=== PATIENT | male | born 1990 | race Caucasian/White ===

== ENCOUNTER → 2017-01-15 | Outpatient (REF) | payer OTHER ==
[2017-01-15 11:06] LABS: #IMMOTILE SPERM COUNTED 14.5; #MOTILE SPERM COUNTED 4; % MOTILITY 21 (> 25%); TOTAL # SPERM COUNTED 18.5 M/ml
== END ==
LOC: M SMT 10:29
PROVIDERS: ATTEND Nurse Practitioner Women's Health
DX: N46.11 Organic oligospermia (principal)

== ENCOUNTER → 2017-02-07 | Outpatient (REF) | payer OTHER | LOC: M LABSMT 09:09 → M LABDRAWC 09:19 | PROVIDERS: ATTEND Nurse Practitioner Women's Health | DX: N46.11 Organic oligospermia (principal) ==

== ENCOUNTER → 2017-02-07 | Outpatient (CLI) | payer OTHER ==
--- NOTE | 2017-02-07 15:49 | REP ---
SCROTAL ULTRASOUND: Real-time sonographic evaluation of the scrotum and contents performed. Testicles are symmetrical in size, right testicle measuring 4.1 x 1.9 x 2.5 cm and left testicle 4.1 x 2.4 x 2.7 cm. There is no testicular mass or torsion. Blood flow is seen in each testicle with duplex Doppler evaluation, RI right testicle 0.43 and left testicle 0.45. Small cyst in the right epididymis measures 3 mm in diameter. Small left varicocele is noted 3 mm in maximum diameter. Small bilateral hydroceles are seen, left greater than right. IMPRESSION: No testicular mass or torsion. Small left varicocele. Normal size of testicles with no size asymmetry. Signed by Gavin Blank MD 02/07/2017 04:44 P
== END ==
LOC: M RAD 13:12
PROVIDERS: ATTEND Nurse Practitioner Women's Health
DX: I86.1 Scrotal varices (principal)

== ENCOUNTER → 2017-09-10 | Outpatient (REF) | payer OTHER ==
[2017-09-10 12:04] LABS: MEAN CORPUSCULAR HEMOGLOBIN 28.9 pg (27.0-33.0); MEAN CORPUSCULAR HGB CONC 34.2 g/dl (32.0-36.5); MEAN CORPUSCULAR VOLUME 84.4 fl (80.0-96.0); PLATELET COUNT, AUTOMATED 196 10^3/uL (150-450); RED CELL DISTRIBUTION WIDTH 12.3 % (11.5-14.5); WHITE BLOOD COUNT 5.5 10^3/uL (4.0-10.0)
[2017-09-10 12:30] LABS: ALBUMIN 4.4 GM/DL (3.2-5.2); ALBUMIN/GLOBULIN RATIO 1.63 (1.00-1.93); ALKALINE PHOSPHATASE 67 U/L (45-117); ALT/SGPT 24 U/L (12-78); ANION GAP 6 MEQ/L (8-16); AST/SGOT 12 U/L (7-37); BILIRUBIN,TOTAL 0.9 MG/DL (0.2-1.0); BLOOD UREA NITROGEN 19 MG/DL (7-18); CALCIUM LEVEL 9.1 MG/DL (8.5-10.1); CARBON DIOXIDE LEVEL 29 MEQ/L (21-32); CHLORIDE LEVEL 106 MEQ/L (98-107); CHOLESTEROL LEVEL 178 MG/DL (<200); GLOMERULAR FILTRATION RATE > 60.0 (>60); GLUCOSE, FASTING 86 MG/DL (70-105); SODIUM LEVEL 141 MEQ/L (136-145); TOTAL PROTEIN 7.1 GM/DL (6.4-8.2); TRIGLYCERIDES LEVEL 65 MG/DL (<150)
[2017-09-10 12:33] LABS: POTASSIUM SERUM 5.2 MEQ/L (3.5-5.1)
== END ==
LOC: M SFHCCLAY 09:15
PROVIDERS: ATTEND Nurse Practitioner Family
DX: K21.9 Gastro-esophageal reflux disease without esophagitis (principal); F90.9 Attention-deficit hyperactivity disorder, unspecified type; Z13.6 Encounter for screening for cardiovascular disorders

== ENCOUNTER → 2017-09-19 | Outpatient (REF) | payer OTHER | LOC: M SFHCCLAY 09:40 | PROVIDERS: ATTEND Nurse Practitioner Family | DX: E87.5 Hyperkalemia (principal) ==

== ENCOUNTER → 2017-09-19 | Outpatient (CLI) | payer OTHER ==
--- NOTE | 2017-09-19 10:51 | REP ---
PA and lateral chest: Comparison is 06/28/2014. The lung king are clear. The cardiac size is normal The flora, mediastinum, and bony thorax are unremarkable except for mild thoracic scoliosis convex right, unchanged. Impression: Negative PA and lateral chest. There is no interval change. Signed by Gavin Licona MD 09/19/2017 10:43 A
== END ==
LOC: M CLY 09:45
PROVIDERS: ATTEND Nurse Practitioner Family
DX: R06.89 Other abnormalities of breathing (principal)

== ENCOUNTER → 2017-12-17 | Outpatient (REF) | payer OTHER ==
[2017-12-17 15:24] LABS: CHLAMYDIA DNA AMPLIFICATION NEGATIVE (NEGATIVE); GC DNA AMPLIFICATION NEGATIVE (NEGATIVE)
== END ==
LOC: M SFHCCLAY 08:11
DX: A74.9 Chlamydial infection, unspecified (principal)

== ENCOUNTER → 2018-03-25 | Outpatient (REF) | payer OTHER ==
[2018-03-25 18:01] LABS: CHOLESTEROL LEVEL 173 MG/DL (<200); CHOLESTEROL RISK RATIO 4.219 (<5); HDL CHOLESTEROL 41 MG/DL (>40); LDL CHOLESTEROL 103.6 MG/DL (<100); NON-HDL-C 132 MG/DL; TRIGLYCERIDES LEVEL 142 MG/DL (<150)
[2018-03-25 18:04] LABS: TOTAL 25(OH) VITAMIN D 15.4 NG/ML (30.0-100.0)
== END ==
LOC: M SFHCCLAY 11:03
DX: E78.5 Hyperlipidemia, unspecified (principal); E55.9 Vitamin D deficiency, unspecified

== ENCOUNTER → 2018-08-27 | Outpatient (REF) | payer OTHER ==
[2018-08-27 11:36] LABS: HEMATOCRIT 50.6 % (42.0-52.0); HEMOGLOBIN 17.3 g/dl (13.5-17.5); MEAN CORPUSCULAR HEMOGLOBIN 29.1 pg (27.0-33.0); MEAN CORPUSCULAR HGB CONC 34.2 g/dl (32.0-36.5); MEAN CORPUSCULAR VOLUME 85.2 fl (80.0-96.0); PLATELET COUNT, AUTOMATED 198 10^3/uL (150-450); RED BLOOD COUNT 5.94 10^6/uL (4.30-6.10); RED CELL DISTRIBUTION WIDTH 12.4 % (11.5-14.5); WHITE BLOOD COUNT 7.9 10^3/uL (4.0-10.0)
[2018-08-27 12:01] LABS: ALBUMIN 4.6 GM/DL (3.2-5.2); ALBUMIN/GLOBULIN RATIO 1.77 (1.00-1.93); ALKALINE PHOSPHATASE 71 U/L (45-117); ALT/SGPT 17 U/L (12-78); ANION GAP 4 MEQ/L (8-16); AST/SGOT 8 U/L (7-37); BILIRUBIN,TOTAL 0.7 MG/DL (0.2-1.0); BLOOD UREA NITROGEN 21 MG/DL (7-18); CALCIUM LEVEL 9.5 MG/DL (8.5-10.1); CARBON DIOXIDE LEVEL 32 MEQ/L (21-32); CHLORIDE LEVEL 102 MEQ/L (98-107); CHOLESTEROL LEVEL 163 MG/DL (<200); CHOLESTEROL RISK RATIO 4.179 (<5); CREATININE FOR GFR 1.07 MG/DL (0.70-1.30); GLOMERULAR FILTRATION RATE > 60.0 (>60); GLUCOSE, FASTING 135 MG/DL (70-100); HDL CHOLESTEROL 39 MG/DL (>40); LDL CHOLESTEROL 106 MG/DL (<100); NON-HDL-C 124 MG/DL; SODIUM LEVEL 138 MEQ/L (136-145); TOTAL PROTEIN 7.2 GM/DL (6.4-8.2); TRIGLYCERIDES LEVEL 92 MG/DL (<150)
[2018-08-27 12:11] LABS: TOTAL 25(OH) VITAMIN D 26.8 NG/ML (30.0-100.0)
[2018-08-27 12:20] LABS: ERYTHROCYTE SEDIMENTATION RATE 1 mm/hr (0-15)
== END ==
LOC: M SFHCCLAY 08:19
DX: K21.9 Gastro-esophageal reflux disease without esophagitis (principal); E78.5 Hyperlipidemia, unspecified; E55.9 Vitamin D deficiency, unspecified; M54.5 Low back pain
CPT/HCPCS: 80053

== ENCOUNTER 2020-05-13 18:42 | Emergency (ER) | payer OTHER | END 2020-05-13 19:00 | disposition left against medical advice (07) | LOC: M ED 18:42 | DX: Z53.21 Procedure and treatment not carried out due to patient leaving prior to being seen by health care provider (principal) ==

== ENCOUNTER → 2021-03-09 | Outpatient (REF) | payer OTHER ==
[2021-03-09 12:07] LABS: HEMATOCRIT 48.3 % (42.0-52.0); HEMOGLOBIN 16.2 g/dl (13.5-17.5); MEAN CORPUSCULAR HEMOGLOBIN 28.2 pg (27.0-33.0); MEAN CORPUSCULAR HGB CONC 33.5 g/dl (32.0-36.5); MEAN CORPUSCULAR VOLUME 84.1 fl (80.0-96.0); PLATELET COUNT, AUTOMATED 186 10^3/uL (150-450); RED BLOOD COUNT 5.74 10^6/uL (4.30-6.10); WHITE BLOOD COUNT 6.3 10^3/uL (4.0-10.0)
[2021-03-09 12:59] LABS: BLOOD UREA NITROGEN 17 MG/DL (7-18); CARBON DIOXIDE LEVEL 30 MEQ/L (21-32); CHLORIDE LEVEL 106 MEQ/L (98-107); CREATININE FOR GFR 0.97 MG/DL (0.70-1.30); GLOMERULAR FILTRATION RATE > 60.0 (>60); GLUCOSE, FASTING 101 MG/DL (70-100); POTASSIUM SERUM 4.4 MEQ/L (3.5-5.1); SODIUM LEVEL 141 MEQ/L (136-145)
[2021-03-09 13:00] LABS: ALBUMIN 4.3 GM/DL (3.2-5.2); ALT/SGPT 43 U/L (12-78); BILIRUBIN,TOTAL 0.6 MG/DL (0.2-1.0); CALCIUM LEVEL 9.5 MG/DL (8.5-10.1); CHOLESTEROL LEVEL 210 MG/DL (<200); CHOLESTEROL RISK RATIO 4.375 (<5); HDL CHOLESTEROL 48 MG/DL (>40); LDL CHOLESTEROL 143 MG/DL (<100); NON-HDL-C 162 MG/DL; TOTAL 25(OH) VITAMIN D 22.4 NG/ML (30.0-100.0); TOTAL PROTEIN 7.1 GM/DL (6.4-8.2); TRIGLYCERIDES LEVEL 94 MG/DL (<150)
== END ==
LOC: M SFHCCLAY 08:30
PROVIDERS: ATTEND Nurse Practitioner Family
DX: K21.9 Gastro-esophageal reflux disease without esophagitis (principal); F90.9 Attention-deficit hyperactivity disorder, unspecified type; E78.5 Hyperlipidemia, unspecified; E55.9 Vitamin D deficiency, unspecified

== ENCOUNTER → 2022-07-01 | Outpatient (REF) | payer OTHER | LOC: M SFHCCLAY 11:32 | PROVIDERS: ATTEND Nurse Practitioner Family | DX: F32.A Depression, unspecified (principal); F90.9 Attention-deficit hyperactivity disorder, unspecified type; E55.9 Vitamin D deficiency, unspecified; Z13.220 Encounter for screening for lipoid disorders ==

== ENCOUNTER → 2022-07-02 | Outpatient (REF) | payer OTHER ==
[2022-07-02 17:15] LABS: HEMATOCRIT 49.6 % (42.0-52.0); HEMOGLOBIN 16.6 g/dl (13.5-17.5); MEAN CORPUSCULAR HEMOGLOBIN 28.2 pg (27.0-33.0); MEAN CORPUSCULAR HGB CONC 33.5 g/dl (32.0-36.5); MEAN CORPUSCULAR VOLUME 84.4 fl (80.0-96.0); PLATELET COUNT, AUTOMATED 203 10^3/uL (150-450); RED BLOOD COUNT 5.88 10^6/uL (4.30-6.10); WHITE BLOOD COUNT 6.6 10^3/uL (4.0-10.0)
[2022-07-02 17:50] LABS: ALBUMIN 4.3 GM/DL (3.2-5.2); ALT/SGPT 38 U/L (12-78); BILIRUBIN,TOTAL 0.8 MG/DL (0.2-1.0); BLOOD UREA NITROGEN 19 MG/DL (7-18); CALCIUM LEVEL 9.8 MG/DL (8.5-10.1); CARBON DIOXIDE LEVEL 29 MEQ/L (21-32); CHLORIDE LEVEL 105 MEQ/L (98-107); CHOLESTEROL LEVEL 194 MG/DL (<200); CHOLESTEROL RISK RATIO 4.731 (<5); CREATININE FOR GFR 1.01 MG/DL (0.70-1.30); GLOMERULAR FILTRATION RATE > 60.0 (>60); GLUCOSE, FASTING 101 MG/DL (70-100); HDL CHOLESTEROL 41 MG/DL (>40); LDL CHOLESTEROL 128 MG/DL (<100); NON-HDL-C 153 MG/DL; POTASSIUM SERUM 5.1 MEQ/L (3.5-5.1); SODIUM LEVEL 137 MEQ/L (136-145); TOTAL PROTEIN 7.5 GM/DL (6.4-8.2); TRIGLYCERIDES LEVEL 124 MG/DL (<150)
== END ==
LOC: M SFHCCLAY 10:50
PROVIDERS: ATTEND Nurse Practitioner Family
DX: F32.9 Major depressive disorder, single episode, unspecified (principal); F90.9 Attention-deficit hyperactivity disorder, unspecified type; E55.9 Vitamin D deficiency, unspecified; Z13.220 Encounter for screening for lipoid disorders

== ENCOUNTER → 2022-07-29 | Outpatient (CLI) | payer OTHER | LOC: M CLY 11:36 | PROVIDERS: ATTEND Nurse Practitioner Family | DX: M54.50 Low back pain, unspecified (principal); M25.78 Osteophyte, vertebrae ==

== ENCOUNTER → 2022-08-21 | Outpatient (REF) | payer OTHER | LOC: M SFHCCLAY 10:07 | PROVIDERS: ATTEND Nurse Practitioner Women's Health | DX: N46.11 Organic oligospermia (principal) ==

== ENCOUNTER → 2022-08-22 | Outpatient (CLI) | payer OTHER ==
[2022-08-22 12:06] LABS: SEMEN APPEARANCE OPAQUE (OPAQUE); SEMEN VISCOSITY LIQUID (LIQUID); SEMEN VOLUME 4.6 ML (2.0-5.0); SEMEN WBC <=1 M/ml (<=1 M/ml)
== END ==
LOC: M RAD 15:39
PROVIDERS: ATTEND Nurse Practitioner Women's Health
DX: N46.11 Organic oligospermia (principal); I86.1 Scrotal varices

== ENCOUNTER → 2022-09-02 | Outpatient (REF) | payer OTHER ==
[2022-09-02 18:47] LABS: ESTRADIOL 29.7 PG/ML (<39.8); FOLLICLE STIMULATING HORMONE 4.7 mIU/ML (1.4-18.1); LUTEINIZING HORMONE 8.1 mIU/ML (1.5-9.3)
== END ==
LOC: M SFHCCLAY 11:12
PROVIDERS: ATTEND Urology
DX: N46.11 Organic oligospermia (principal)

== ENCOUNTER → 2022-09-30 | Outpatient (CLI) | payer OTHER ==
[~2022-09-30] MED LIST: AMPH1CAP16 PO; ATIV1TAB10 PO; OMEP40CA5 PO; SUMA100T2; TOPI50TA9 PO; ZOLO100T PO
[2022-09-30 13:19] LABS: HEMATOCRIT 48.1 % (42.0-52.0); HEMOGLOBIN 16.2 g/dl (13.5-17.5); MEAN CORPUSCULAR HEMOGLOBIN 27.8 pg (27.0-33.0); MEAN CORPUSCULAR HGB CONC 33.7 g/dl (32.0-36.5); MEAN CORPUSCULAR VOLUME 82.6 fl (80.0-96.0); PLATELET COUNT, AUTOMATED 213 10^3/uL (150-450); RED BLOOD COUNT 5.82 10^6/uL (4.30-6.10); WHITE BLOOD COUNT 5.8 10^3/uL (4.0-10.0)
[2022-09-30 13:44] LABS: ALBUMIN 4.5 G/DL (3.2-5.2); ALKALINE PHOSPHATASE 64 U/L (46-116); ALT/SGPT 55 U/L (7.0-40); AST/SGOT 23 U/L (<34); BILIRUBIN,TOTAL 0.8 MG/DL (0.3-1.2); BLOOD UREA NITROGEN 20 MG/DL (9-23); CALCIUM LEVEL 9.4 MG/DL (8.5-10.1); CARBON DIOXIDE LEVEL 25 MMOL/L (20-31); CHLORIDE LEVEL 106 MMOL/L (98-107); CREATININE FOR GFR 0.93 MG/DL (0.70-1.30); GLOMERULAR FILTRATION RATE > 60.0 (>60); GLUCOSE, FASTING 103 MG/DL (60-100); POTASSIUM SERUM 4.2 MMOL/L (3.5-5.1); SODIUM LEVEL 141 MMOL/L (136-145); TOTAL PROTEIN 7.1 G/DL (5.7-8.2)
== END ==
LOC: M RAD 12:02
PROVIDERS: ATTEND Urology
DX: I86.1 Scrotal varices (principal)

== ENCOUNTER → 2022-10-10 | Outpatient (REF) | payer OTHER ==
[2022-10-10 14:37] LABS: APPEARANCE, URINE MANUAL CLEAR (CLEAR); COLOR, URINE MANUAL YELLOW (YELLOW)
[2022-10-10 14:38] LABS: PH,URINE MAN 6.5 UNITS (5.0 - 7.0)
[2022-10-10 14:39] LABS: BILIRUBIN, URINE MANUAL NEGATIVE (NEGATIVE); BLOOD URINE MANUAL NEGATIVE (NEGATIVE); GLUCOSE, URINE (UA) MANUAL NEGATIVE (NEGATIVE); KETONE, URINE MANUAL NEGATIVE (NEGATIVE); PROTEIN, URINE MANUAL NEGATIVE (NEGATIVE); UROBILINOGEN, URINE MANUAL NORMAL (NORMAL)
[2022-10-10 14:40] LABS: LEUKOCYTE ESTERASE, URINE MAN NEGATIVE (NEGATIVE); NITRITE, URINE MANUAL NEGATIVE (NEGATIVE)
== END ==
LOC: M SFHCCLAY 13:24
PROVIDERS: ATTEND Nurse Practitioner Family
DX: Z01.818 Encounter for other preprocedural examination (principal)

== ENCOUNTER → 2022-10-14 | Outpatient (CLI) | payer OTHER | LOC: M LABSMTC 11:31 | PROVIDERS: ATTEND Anesthesiology | DX: Z01.812 Encounter for preprocedural laboratory examination (principal); Z11.52 Encounter for screening for COVID-19 ==

== ENCOUNTER 2022-10-17 10:56 | Day surgery (SDC) | payer OTHER ==
[~2022-10-17] VITALS: Ht 182.9 cm; Wt 96.2 kg
[~2022-10-17 10:56] MED LIST changes: +ceFAZolin SOD 2 GM in IV 1 EA IV ONE
[2022-10-17] MEDS ORDERED: MIDAZOLAM INJ 2MG/2ML VIAL As Ordered ONE (13:21)
[2022-10-17] MEDS ORDERED: fentaNYL 250 MCG/5 ML INJECTION As Ordered ONE (13:21)
[2022-10-17] MEDS ORDERED: ONDANSETRON 4MG 2ML VIAL As Ordered ONE (13:22)
[2022-10-17] MEDS ORDERED: LIDOCAINE 2% 100MG/5ML SDV (FOR ANES.) As Ordered ONE (13:22)
[2022-10-17] MEDS ORDERED: propofoL 200 MG/20 ML VIAL As Ordered ONE (13:22)
[2022-10-17] MEDS ORDERED: ROCURONIUM BROMIDE 50MG/5ML VIAL As Ordered ONE ×2 (13:22→16:24)
[2022-10-17] MEDS ORDERED: BUPIVACAINE HCL 0.25% 30ML VIAL As Ordered ONE (14:51)
[2022-10-17] MEDS ORDERED: LIDOCAINE 1% SDV 30ML VIAL As Ordered ONE (14:51)
[2022-10-17] MEDS ORDERED: ACETAMINOPHEN 1000MG 100ML IV BAG As Ordered ONE (15:28)
[2022-10-17] MEDS ORDERED: PHENYLephrine 500MCG 5ML (100MCG/ML) SYRINGE As Ordered ONE (15:35)
[2022-10-17] MEDS ORDERED: ePHEDrine INJ 50MG/ML 1ML VIAL As Ordered ONE (16:14)
[2022-10-17] MEDS ORDERED: SUGAMMADEX SODIUM 500 MG/5 ML VIAL (BRIDION) As Ordered ONE (16:27)
[2022-10-17] MEDS ORDERED: LR 1,000 ML IV SCH (17:05)
[2022-10-17] MEDS ORDERED: ONDANSETRON 4MG 2ML VIAL IV PRN (17:05)
[2022-10-17] MEDS ORDERED: fentaNYL 100 MCG/2 ML INJECTION IV PRN (17:05)
[2022-10-17] MEDS ORDERED: HYDR-3713 PO (17:20)
[2022-10-17] MEDS ORDERED: BACT800T5 PO (17:20)
[2022-10-17] MEDS: oxyCODONE 5MG TAB PO PRN ×2 (17:47→18:21)
[2022-10-17] MEDS: HYDROMORPHONE HCL 0.5 MG/ 0.5 ML SYRINGE IV PRN ×4 (17:49→18:26)
[2022-10-17 19:05] VITALS: BP 134/72
== END 2022-10-17 19:17 | disposition home or self-care (01) ==
LOC: M SDC 10:56
PROVIDERS: ATTEND Urology
DX: I86.1 Scrotal varices (principal); K21.9 Gastro-esophageal reflux disease without esophagitis; N46.9 Male infertility, unspecified; F90.9 Attention-deficit hyperactivity disorder, unspecified type; F41.9 Anxiety disorder, unspecified; F32.A Depression, unspecified; G43.909 Migraine, unspecified, not intractable, without status migrainosus; Z79.899 Other long term (current) drug therapy; Z87.891 Personal history of nicotine dependence
CPT/HCPCS: 55530; J1100; J2370; J2405

== ENCOUNTER → 2023-02-13 | Outpatient (REF) | payer OTHER ==
[~2023-02-13] MED LIST changes: +BACT800T5 PO; +HYDR-3713 PO; +TOPI-254 PO; -TOPI50TA9 PO; -ceFAZolin SOD 2 GM in IV 1 EA IV ONE
[2023-02-13 15:48] LABS: SEMEN APPEARANCE OPAQUE (OPAQUE); SEMEN VISCOSITY LIQUID (LIQUID); SEMEN VOLUME 4.5 ML (2.0-5.0); SEMEN WBC <=1 M/ml (<=1 M/ml); SEMEN pH 8.5 (7.0-8.0)
== END ==
LOC: M SMT 14:33
PROVIDERS: ATTEND Urology
DX: I86.1 Scrotal varices (principal)

== ENCOUNTER → 2023-09-01 | Outpatient (REF) | payer OTHER ==
[2023-09-01 13:30] LABS: SEMEN APPEARANCE OPAQUE (OPAQUE); SEMEN VISCOSITY LIQUID (LIQUID); SEMEN WBC <=1 M/ml (<=1 M/ml)
== END ==
LOC: M SMT 12:36
PROVIDERS: ATTEND Urology
DX: N46.8 Other male infertility (principal)

== ENCOUNTER → 2023-09-15 | Outpatient (REF) | payer OTHER | LOC: M SFHCCLAY 12:31 | PROVIDERS: ATTEND Nurse Practitioner Family | DX: R09.81 Nasal congestion (principal) ==

== ENCOUNTER → 2024-03-16 | Outpatient (REF) | payer OTHER ==
[~2024-03-16] MED LIST changes: +TOPI-21 PO; -TOPI-254 PO
[2024-03-16 17:38] LABS: ALBUMIN 4.4 G/DL (3.2-5.2); ALKALINE PHOSPHATASE 54 U/L (46-116); ALT/SGPT 30 U/L (7.0-40); AST/SGOT 10 U/L (<34); BILIRUBIN,TOTAL 0.7 MG/DL (0.3-1.2); BLOOD UREA NITROGEN 19 MG/DL (9-23); CALCIUM LEVEL 9.8 MG/DL (8.5-10.1); CARBON DIOXIDE LEVEL 31 MMOL/L (20-31); CHLORIDE LEVEL 106 MMOL/L (98-107); CHOLESTEROL LEVEL 160 MG/DL (<200); CHOLESTEROL RISK RATIO 3.73 (<5); GLOMERULAR FILTRATION RATE > 60.0 (>60); GLUCOSE, FASTING 105 MG/DL (60-100); HDL CHOLESTEROL 42.8 MG/DL (>40); LDL CHOLESTEROL 104.6 MG/DL (<100); NON-HDL-C 117.2 MG/DL; POTASSIUM SERUM 4.1 MMOL/L (3.5-5.1); SODIUM LEVEL 141 MMOL/L (136-145); TOTAL PROTEIN 6.7 G/DL (5.7-8.2); TRIGLYCERIDES LEVEL 63 MG/DL (<150)
== END ==
LOC: M SFHCCLAY 11:44
PROVIDERS: ATTEND Nurse Practitioner Family
DX: M54.50 Low back pain, unspecified (principal); G89.29 Other chronic pain; K21.9 Gastro-esophageal reflux disease without esophagitis

== ENCOUNTER → 2024-06-18 | Outpatient (CLI) | payer OTHER ==
[~2024-06-18] MED LIST changes: +CEPH500C PO; +HYDR-3715 PO; +OMEP-173 PO; +TRAZ-189 PO
[2024-06-18 16:05] LABS: HEMATOCRIT 48.3 % (42.0-52.0); HEMOGLOBIN 16.7 g/dl (13.5-17.5); MEAN CORPUSCULAR HEMOGLOBIN 28.4 pg (27.0-33.0); MEAN CORPUSCULAR HGB CONC 34.6 g/dl (32.0-36.5); MEAN CORPUSCULAR VOLUME 82.1 fl (80.0-96.0); PLATELET COUNT, AUTOMATED 192 10^3/uL (150-450); RED BLOOD COUNT 5.88 10^6/uL (4.30-6.10)
[2024-06-18 17:24] LABS: ALBUMIN 4.6 G/DL (3.2-5.2); ALKALINE PHOSPHATASE 61 U/L (46-116); ALT/SGPT 46 U/L (7.0-40); AST/SGOT 14 U/L (<34); BILIRUBIN,TOTAL 1.1 MG/DL (0.3-1.2); BLOOD UREA NITROGEN 23 MG/DL (9-23); CALCIUM LEVEL 10.4 MG/DL (8.5-10.1); CARBON DIOXIDE LEVEL 30 MMOL/L (20-31); CHLORIDE LEVEL 106 MMOL/L (98-107); CREATININE FOR GFR 1.12 MG/DL (0.70-1.30); GLOMERULAR FILTRATION RATE > 60.0 (>60); GLUCOSE, FASTING 86 MG/DL (60-100); POTASSIUM SERUM 5.1 MMOL/L (3.5-5.1); SODIUM LEVEL 139 MMOL/L (136-145); TOTAL PROTEIN 7.3 G/DL (5.7-8.2)
== END ==
LOC: M LAB 15:23
PROVIDERS: ATTEND Urology
DX: N43.3 Hydrocele, unspecified (principal)

== ENCOUNTER 2024-06-28 10:04 | Day surgery (SDC) | payer OTHER ==
[~2024-06-28] VITALS: Ht 182.9 cm; Wt 80.9 kg
[~2024-06-28 10:04] MED LIST changes: -CEPH500C PO; -HYDR-3715 PO
[2024-06-28] MEDS ORDERED: ROCURONIUM BROMIDE 50MG/5ML VIAL As Ordered ONE (10:58)
[2024-06-28] MEDS ORDERED: LIDOCAINE 2% 100MG/5ML SDV (FOR ANES.) As Ordered ONE (10:58)
[2024-06-28] MEDS ORDERED: SUGAMMADEX SODIUM 500 MG/5 ML VIAL (BRIDION) As Ordered ONE (10:58)
[2024-06-28] MEDS ORDERED: propofoL 200 MG/20 ML VIAL As Ordered ONE (10:58)
[2024-06-28] MEDS ORDERED: ACETAMINOPHEN 1000MG 100ML IV BAG As Ordered ONE (10:58)
[2024-06-28] MEDS ORDERED: MIDAZOLAM INJ 2MG/2ML VIAL As Ordered ONE (10:59)
[2024-06-28] MEDS ORDERED: fentaNYL 100 MCG/2 ML INJECTION As Ordered ONE (10:59)
[2024-06-28] MEDS: LR 1,000 ML IV SCH (11:02)
[2024-06-28] MEDS ORDERED: ONDANSETRON 4MG 2ML VIAL As Ordered ONE (11:09)
[2024-06-28] MEDS: ceFAZolin SOD 2 GM in IV 1 EA IV ONE (11:30)
[2024-06-28] MEDS: LIDOCAINE 2% MDV 20ML VIAL As Ordered ONE (11:55)
[2024-06-28] MEDS ORDERED: CEPH500C PO (12:08)
[2024-06-28] MEDS ORDERED: HYDR-3715 PO (12:08)
[2024-06-28] MEDS ORDERED: ONDANSETRON 4MG 2ML VIAL IV PRN (12:10)
[2024-06-28] MEDS ORDERED: LR 1,000 ML IV SCH (12:10)
[2024-06-28] MEDS: HYDROMORPHONE HCL 0.5 MG/ 0.5 ML SYRINGE IV PRN (12:25)
[2024-06-28] MEDS: KETOROLAC 30 MG/ML 1ML VIAL IV ONE (12:26)
[2024-06-28] MEDS: oxyCODONE 5MG TAB PO PRN (12:41)
[2024-06-28] MEDS: fentaNYL 100 MCG/2 ML INJECTION IV PRN (12:47)
[2024-06-28 13:27] VITALS: BP 182/64; TEMP 97.9; O2SAT 98
== END 2024-06-28 13:40 | disposition home or self-care (01) ==
LOC: M SDC 10:04
PROVIDERS: ATTEND Urology
DX: N43.3 Hydrocele, unspecified (principal); K21.9 Gastro-esophageal reflux disease without esophagitis; F41.9 Anxiety disorder, unspecified; F32.A Depression, unspecified; F90.9 Attention-deficit hyperactivity disorder, unspecified type; Z79.899 Other long term (current) drug therapy; F12.10 Cannabis abuse, uncomplicated; G43.909 Migraine, unspecified, not intractable, without status migrainosus; Z88.0 Allergy status to penicillin
CPT/HCPCS: 55040; 88302; J0131; J0665; J0690; J1100; J1170; J1885; J2250; J2405; J3010

== ENCOUNTER 2025-04-19 10:03 | Emergency (ER) | payer OTHER ==
[~2025-04-19] VITALS: Ht 182.9 cm; Wt 87.6 kg
[~2025-04-19 10:03] MED LIST changes: +CEPH500C PO; +HYDR-3715 PO
[2025-04-19 11:31] LABS: PLATELET COUNT, AUTOMATED 226 10^3/uL (150-450)
[2025-04-19 12:07] LABS: ATYPICAL LYMPH 3 % (0-5); BASOPHILS 1 % (0-1); EOSINOPHILS 3 % (0-3); LYMPHOCYTES 26 % (16-44); MONOCYTES 15 % (0-5); NEUTROPHILS 52 % (28-66); PLATELET ESTIMATE NORMAL (NORMAL)
[2025-04-19 12:10] LABS: ALT/SGPT 37 U/L (7.0-40); AST/SGOT 25 U/L (<34); CALCIUM LEVEL 9.7 MG/DL (8.5-10.1); CARBON DIOXIDE LEVEL 24 MMOL/L (20-31); CHLORIDE LEVEL 103 MMOL/L (98-107); CREATININE FOR GFR 1.01 MG/DL (0.70-1.30); GLOMERULAR FILTRATION RATE > 90.0 (>60); POTASSIUM SERUM 3.2 MMOL/L (3.5-5.1); SODIUM LEVEL 142 MMOL/L (136-145)
[2025-04-19] MEDS: NS (Normal Saline) 0.9% 1,000 ML IV ONE (12:40)
[2025-04-19] MEDS ORDERED: HOME MED LIST COMPLETE! XX SCH (13:55)
[2025-04-19] MEDS ORDERED: AZIT500T5 PO (16:29)
[2025-04-19 16:30] VITALS: BP 113/70; O2SAT 96
[2025-04-19 16:36] VITALS: TEMP 99.5
== END 2025-04-19 16:42 | disposition home or self-care (01) ==
LOC: M ED 10:03
DX: A04.5 Campylobacter enteritis (principal); I45.10 Unspecified right bundle-branch block; Z88.0 Allergy status to penicillin; Z79.2 Long term (current) use of antibiotics; Z79.899 Other long term (current) drug therapy